=== PATIENT | male | born 1945 | race Caucasian/White ===

== ENCOUNTER → 2019-07-22 | Outpatient (CLI) | payer MEDICARE, OTHER ==
--- NOTE | 2019-07-22 14:01 | 2DMMODE ---
[place] [address] 2 D/M-MODE ECHOCARDIOGRAM Name: BARRERA AKERS Room: [facility]#: [id number] Admission: 07/22/19 Attend Phys: Qi Munson, Discharge: Date of : 41 Date of Service: 07/22/19 1359 Report #: [id number] THIS REPORT FOR: cc: Rafa Ramos MD, Matthew W. MD Liston, Michael J. MD [facility] ~ APPROVED REPORT Study performed: 07/22/2019 12:37:39 EXAM: Comprehensive 2D, Doppler, and color-flow Echocardiogram Patient Location: Out-Patient BSA: 2.03 HR: 84 bpm BP: 135/62 mmHg Other Information Study Quality: Good Indications Chest Pain 2D Dimensions IVSd: 11.29 (7-11mm) LVOT Diam: 20.20 (18-24mm) LVDd: 42.80 mm PWd: 10.25 (7-11mm) Ascending Ao: 28.40 (22-36mm) LVDs: 23.89 (25-40mm) Aortic Root: 25.29 mm Volumes Left Atrial Volume (Systole) LA ESV Index: 15.10 mL/m2 Aortic Valve AoV Peak Keith.: 1.21 m/s AO Peak Gr.: 5.86 mmHg LVOT Max P.51 mmHg AO Mean Gr.: 3.02 mmHg LVOT Mean P.19 mmHg LVOT Max V: 1.17 m/s AO V2 VTI: 26.39 cm LVOT Mean V: 0.66 m/s MOHIT (VTI): 2.92 cm2 LVOT V1 VTI: 24.06 cm Mitral Valve E/A Ratio: 0.63 [place] [address] 2 D/M-MODE ECHOCARDIOGRAM Name: BARREAR AKERS Room: [facility]#: [id number] Admission: 07/22/19 Attend Phys: Qi Munson, Discharge: Date of : 41 Date of Service: 07/22/19 1359 Report #: [id number] MV Decel. Time: 321.15 ms MV E Max Keith.: 0.49 m/s MV PHT: 93.13 ms MVA (PHT): 2.36 cm2 TDI E/Lateral E': 3.77 E/Medial E': 6.13 Medial E' Keith.: 0.08 m/s Lateral E' Keith.: 0.13 m/s Pulmonary Valve PV Peak Keith.: 1.11 m/s PV Peak Gr.: 4.89 mmHg Left Ventricle The left ventricle is normal size. There is normal LV segmental wall motion. There is normal left ventricular wall thickness. Left ventricular systolic function is normal. LVEF is 60-65%. Grade I - abnormal relaxation pattern. Right Ventricle The right ventricle is normal size. The right ventricular systolic function is normal. Atria The left atrium size is normal. The right atrium size is normal. Aortic Valve Mild aortic valve sclerosis. No aortic regurgitation is present. There is no aortic valvular stenosis. Mitral Valve The mitral valve is normal in structure. There is no mitral valve regurgitation noted. No evidence of mitral valve stenosis. Tricuspid Valve The tricuspid valve is normal in structure. There is no tricuspid valve regurgitation noted. Pulmonic Valve The pulmonary valve is normal in structure. There is no pulmonic valvular regurgitation. Great Vessels The aortic root is normal in size. IVC is normal in size and collapses >50% [place] [address] 2 D/M-MODE ECHOCARDIOGRAM Name: LOSBARRERA HAND Room: [facility]#: [id number] Admission: 07/22/19 Attend Phys: Qi Munson, Discharge: Date of : 41 Date of Service: 07/22/19 1359 Report #: [id number] Pericardium There is no pericardial effusion. <Conclusion> The left ventricle is normal size. There is normal left ventricular wall thickness. Left ventricular systolic function is normal. LVEF is 60-65%. Grade I - abnormal relaxation pattern. Mild aortic valve sclerosis. There is no aortic valvular stenosis. IVC is normal in size and collapses >50% with inspiration. <ELECTRONICALLY SIGNED> By: Ranjit Pereira MD, FACC 07/22/19 1359 1359 1359 Ranjit Pereira MD, FACC /INF
--- NOTE | 2019-07-23 17:07 | CARDNUC ---
[place] [address] CARDIAC NUCLEAR IMAGING REPORT Name: DELPHINEBARRERA Monroe Room: [facility]#: [id number] Admission: 07/22/19 Attend Phys: Qi Munson, Discharge: Date of : 41 Date of Service: 07/23/19 1705 Report #: [id number] THIS REPORT FOR: cc: Rafa Ramos MD, Matthew W. MD Liston, Michael J. MD [facility] ~ APPROVED REPORT Study performed: 07/22/2019 13:15:00 Indication: Chest pain, Dyspnea. Patient Location: Out-Patient Stress Tech: Carolina Trevino Stress Nurse: Cathi Koo RN Ht: 5 ft 9 in Wt: 197 lbs BSA: 2.05 m2 BMI: 29.08 Medical History Medical History: Angina, SALAZAR, HLD. PAST SMOKER. Medications: ATORVASTATIN, ASA 81 MG EVERY OTHER DAY. Allergies: No known drug allergies Cardiac Risk Factors: Age, FHX of CAD, Hyperlipidemia, SOB, Past Smoker, CHEST PAIN. Previous Cardiac Procedures: NONE Pretest Chest Pain Characteristics: No chest pain Exercise History: Physically active Physical Disabilities: NONE NOTED. Resting Data Rest SPECT myocardial perfusion imaging was performed in supine position 30 minutes following the intravenous injection of 11.7 mCi of Tc-99m Sestamibi. Time of rest injection: 13:35 The images were gated to evaluate regional wall motion and calculate left ventricular ejection fraction. Administration Route: IV Administration Site: Right Hand Exercise Stress At peak stress, the patient was injected intravenously with 32.9mCi of Tc-99m Sestamibi. Time of stress injection: 16:10 Administration Route: [place] [address] CARDIAC NUCLEAR IMAGING REPORT Name: BARRERA AKERS Room: [facility]#: [id number] Admission: 07/22/19 Attend Phys: Qi Munson, Discharge: Date of : 41 Date of Service: 07/23/19 1705 Report #: [id number] Administration Site: Right Hand Heart Rate at time of stress injection: 136 bpm. Gated Stress SPECT was performed 30 minutes after stress injection. The images were gated to evaluate regional wall motion and calculate left ventricular ejection fraction. Prone imaging was performed. Stress Test Details Stress Test: Exercise stress testing was performed using a Rashel protocol. HR Max Heart Rate (APMHR): 144 bpm Resting HR: 73 bpm Target HR (85% APMHR): 122 bpm Max HR Achieved: 136 bpm % of APMHR: 94 Recovery HR: 85 bpm HR response to stress: Normal HR response to stress BP Resting BP: 139/67 mmHg Max BP: 197/60 mmHg Recovery BP: 134/55 mmHg BP response to stress: Normal blood pressure response to stress. ECG Resting ECG: Sinus Rhythm Stress ECG: Sinus Tachycardia ST Change: None Arrhythmia: VPC's Recovery ECG: Sinus Rhythm Recovery ST Change: None Recovery Arrhythmia: VPC's Clinical Reason for Termination: Maximal effort, Completed protocol, Patient Request. Stress Symptoms: Dyspnea, Lightheaded. Exercise duration: 6 min 54 sec Exercise capacity: 8.43 METs Overall Exercise Capacity for Age: Average The patient tolerated standard Rashel protocol exercise without significant cardiac symptoms. Nurse Comments A 74 YEAR OLD MALE PRESENTED FOR A RASHEL PROTOCOL [place] [address] CARDIAC NUCLEAR IMAGING REPORT Name: BARRERA AKERS Room: [facility]#: [id number] Admission: 07/22/19 Attend Phys: Qi Munson, Discharge: Date of : 41 Date of Service: 07/23/19 1705 Report #: [id number] R/T SALAZAR AND SHARP CHEST PAIN. TREADMILL TOLERATED TO STAGE 3. RECOVERY UNREMARKABLE. PATIENT WAS ESCORTED BY STAFF TO NUCLEAR MEDICINE FOR IMAGING. PATIENT WAS STABLE AND STATED HE FELT GOOD AT THAT TIME. Stress ECG Conclusion The baseline twelve-lead EKG shows sinus rhythm without significant ST segment or T wave abnormality. EKGs obtained during and post exercise shows sinus rhythm and sinus tachycardia with no significant ST segment or T wave changes when compared to baseline. There were no stress-induced arrhythmias. Study Quality Study: Good Artifact: No artifact Study Data At rest, the left ventricular ejection fraction was 78%.. Post stress, the left ventricular ejection was 70%.. TID = 0.89. Perfusion Perfusion images obtained at rest and post exercise stress showed uniform uptake of the radioisotope throughout the myocardium with no defect to suggest infarct or ischemia. Wall Motion Normal left ventricular wall motion. Nuclear Conclusion ECG Findings: negative for ischemia Clinical Findings: negative for ischemia Nuclear Findings: negative for ischemia Exercise Capacity: normal Left Ventricular Function: normal Risk Study: low Myocardial perfusion images show no defect to suggest infarct or ischemia. Left ventricular systolic function appears normal on gated studies. This is a low risk study. <Conclusion> The baseline twelve-lead EKG shows sinus rhythm without significant ST segment or T wave abnormality. EKGs obtained during and post exercise shows sinus rhythm and sinus tachycardia [place] [address] CARDIAC NUCLEAR IMAGING REPORT Name: BARRERA AKERS Room: [facility]#: [id number] Admission: 07/22/19 Attend Phys: Qi Munson, Discharge: Date of : 41 Date of Service: 07/23/19 1705 Report #: [id number] segment or T wave changes when compared to baseline. There were no stress-induced arrhythmias. <ELECTRONICALLY SIGNED> By: Ranjit Pereira MD, FACC 07/23/19 1705 04 04 Ranjit Pereira MD, FAC /INF
== END ==
LOC: M.CRD 07-09 13:22 → M.NUC 14:00
DX: I35.0 Nonrheumatic aortic (valve) stenosis (principal)